=== PATIENT | female | born 1950 | race African-American/Black ===

== ENCOUNTER 2018-07-31 20:45 | Inpatient (IN) ==
[2018-07-31] MEDS ORDERED: SODIUM CHLORIDE 0.9% 1,000 ML IV STA (21:13)
[2018-07-31] MEDS ORDERED: ALBUTEROL/IPRATROPIUM 3 ML NEB RESP TX STA (21:13)
[2018-07-31 21:36] LABS: Basophils % 0.6 % (0.0-0.8); Hemoglobin 12.3 GM/DL (12.0-16.0); Immature Granulocytes % 0.6 %; Immature Granulocytes Absolute 0.03 #; Lymphocytes # 1.3 10*3/uL (1.4-4.0); Lymphocytes % 26.9 % (21.3-54.2); Mean Corpuscular HGB Conc 34.2 GM/DL (32-36); Mean Corpuscular Hemoglobin 27 PG (27-34); Mean Corpuscular Volume 79.8 FL (87-102); Monocytes # 0.6 10*3/uL (0.11-0.8); Monocytes % 11.9 % (1.7-12.7); Platelet Count 242 T/CUMM (130-400); Red Blood Count 4.51 MC/CUMM (3.8-5.5); Red Cell Distribution Width 15.1 % (9.3-17.3)
[2018-07-31 21:49] LABS: INR 1.2; PT Patient Result 12.8 SECS
[2018-07-31 21:53] LABS: Allen Test Positive
[2018-07-31 21:55] LABS: ABG Base Excess 2.5 MMOL/L (-2.5-2.5); ABG HCO3 26.6 MMOL/L (20-26); ABG Oxygen Saturation 97.8 % (95-100); ABG PCO2 43.3 MM HG (35-48); ABG PH 7.411 (7.35-7.45); ABG PO2 98.3 MM HG (80-95); ABG TCO2 24.5 MMOL/L (23-27)
[2018-07-31 22:17] LABS: Albumin 3.4 G/DL (3.4-5.0); Bilirubin,Total 0.6 MG/DL (0.2-1.0); Calcium 8.9 MG/DL (8.5-10.1); Osmolality,Calculated 271.1 MOS/KG (273-304); Potassium 3.7 MMOL/L (3.5-5.1)
[2018-07-31] MEDS ORDERED: LEVOFLOXACIN INJ 500 MG in PREMIX 1 EACH IV STA (22:35)
[2018-08-01] MEDS ORDERED: MORPHINE 4 MG/1 ML VIAL IV PRN (01:28)
[2018-08-01] MEDS ORDERED: NICOTINE 21 MG/24 HR PATCH TRANSDERM PRN (01:28)
[2018-08-01] MEDS ORDERED: BISACODYL 5 MG TABLET PO PRN (01:28)
[2018-08-01] MEDS ORDERED: ZALEPLON 5 MG CAPSULE PO PRN (01:28)
[2018-08-01] MEDS ORDERED: ONDANSETRON 4 MG/2 ML VIAL IV PRN (01:28)
[2018-08-01] MEDS ORDERED: guaiFENesin/DM ER 600-30 MG TABLET PO PRN (01:28)
[2018-08-01] MEDS ORDERED: ALBUTEROL 2.5 MG/3 ML NEB RESP TX PRN (01:28)
[2018-08-01] MEDS ORDERED: diphenhydrAMINE CAP 25 MG CAPSULE PO PRN (01:28)
[2018-08-01] MEDS: ALBUTEROL/IPRATROPIUM 3 ML NEB RESP TX SCH ×6 (03:01→23:28)
[2018-08-01] MEDS: SODIUM CHLORIDE 0.9% 1,000 ML IV SCH ×2 (04:29→18:11)
[2018-08-01] MEDS: cefTRIAXone 1,000 MG in SYRINGE 1 EACH IV SCH (04:34)
[2018-08-01] MEDS: AZITHROMYCIN INJ 500 MG in SODIUM CHLORIDE 0.9% 250 ML IV SCH (04:42)
[2018-08-01] MEDS: PANTOPRAZOLE 40 MG TABLET PO SCH (08:37)
[2018-08-01] MEDS: ENOXAPARIN 40 MG/0.4 ML SYRINGE SUBCUT SCH (13:17)
[2018-08-01] MEDS ORDERED: INSULIN GLARGINE 100 UNIT/ML SUBCUT PRN (20:34)
[2018-08-01] MEDS ORDERED: hydrALAZINE 25 MG TABLET PO PRN (20:34)
[2018-08-01] MEDS ORDERED: GLUCAGON 1 MG VIAL IM PRN (20:37)
[2018-08-01] MEDS ORDERED: DEXTROSE 50% 25 GM/50 ML VIAL IV PRN (20:37)
[2018-08-01] MEDS: GABAPENTIN 400 MG CAPSULE PO SCH (21:59)
[2018-08-01] MEDS: METOPROLOL TARTRATE 100 MG TABLET PO SCH (21:59)
[2018-08-01] MEDS: INSULIN LISPRO 100 UNIT/ML SUBCUT SCH (21:59)
[2018-08-02] MEDS: ALBUTEROL/IPRATROPIUM 3 ML NEB RESP TX SCH ×5 (03:40→20:01)
[2018-08-02 04:40] LABS: Basophils % 0.5 % (0.0-0.8); Eosinophils % 0.7 % (0.00-10.9); Hematocrit 31.9 VOL% (35.7-47.0); Hemoglobin 10.6 GM/DL (12.0-16.0); Immature Granulocytes % 0.2 %; Immature Granulocytes Absolute 0.01 #; Lymphocytes # 1.8 10*3/uL (1.4-4.0); Lymphocytes % 44.8 % (21.3-54.2); Mean Corpuscular HGB Conc 33.2 GM/DL (32-36); Mean Corpuscular Hemoglobin 27 PG (27-34); Mean Corpuscular Volume 79.9 FL (87-102); Mean Platelet Volume 9.3 FL (9.6-12.0); Monocytes # 0.5 10*3/uL (0.11-0.8); Monocytes % 12.9 % (1.7-12.7); Neutrophils # 1.7 10*3/uL (1.4-7.4); Neutrophils % 40.9 % (38.7-73.9); Platelet Count 198 T/CUMM (130-400); Red Blood Count 3.99 MC/CUMM (3.8-5.5); Red Cell Distribution Width 14.9 % (9.3-17.3)
[2018-08-02 05:03] LABS: Osmolality,Calculated 270.8 MOS/KG (273-304); Potassium 3.5 MMOL/L (3.5-5.1)
[2018-08-02 05:09] LABS: Platelet Estimate Adequate; Polychromasia Few
[2018-08-02] MEDS: SODIUM CHLORIDE 0.9% 1,000 ML IV SCH (06:14)
[2018-08-02] MEDS: cefTRIAXone 1,000 MG in SYRINGE 1 EACH IV SCH (06:16)
[2018-08-02] MEDS: LEVOTHYROXINE 88 MCG TABLET PO SCH (06:16)
[2018-08-02] MEDS: AZITHROMYCIN INJ 500 MG in SODIUM CHLORIDE 0.9% 250 ML IV SCH (06:21)
[2018-08-02] MEDS: INSULIN LISPRO 100 UNIT/ML SUBCUT SCH ×4 (08:03→21:19)
[2018-08-02] MEDS: ASPIRIN CHEW 81 MG TABLET PO SCH (08:34)
[2018-08-02] MEDS: MAGNESIUM CHLORIDE 64 MG TABLET PO SCH (08:34)
[2018-08-02] MEDS: PANTOPRAZOLE 40 MG TABLET PO SCH (08:34)
[2018-08-02] MEDS: METOPROLOL TARTRATE 100 MG TABLET PO SCH ×2 (08:34→21:36)
[2018-08-02] MEDS: ENOXAPARIN 40 MG/0.4 ML SYRINGE SUBCUT SCH (08:34)
[2018-08-02] MEDS: GABAPENTIN 400 MG CAPSULE PO SCH ×4 (08:34→21:20)
[2018-08-02] MEDS ORDERED: LEVOFLOXACIN INJ 750 MG in PREMIX 1 EACH IV SCH (11:00)
[2018-08-02] MEDS ORDERED: PIPERACILLIN/TAZOBACTAM 3,375 MG in SODIUM CHLORIDE 0.9% 100 ML IV SCH (13:00)
[2018-08-02] MEDS: ACETAMINOPHEN 325 MG TABLET PO PRN (16:14)
[2018-08-02] MEDS ORDERED: VANCOMYCIN INJ 750 MG in SODIUM CHLORIDE 0.9% 250 ML IV SCH (17:00)
[2018-08-03] MEDS: ALBUTEROL/IPRATROPIUM 3 ML NEB RESP TX SCH ×7 (00:33→22:30)
[2018-08-03] MEDS: ACETAMINOPHEN 325 MG TABLET PO PRN ×2 (01:28→21:56)
[2018-08-03] MEDS: SODIUM CHLORIDE 0.9% 1,000 ML IV SCH (01:31)
[2018-08-03 04:30] LABS: Basophils % 0.3 % (0.0-0.8); Eosinophils % 0.3 % (0.00-10.9); Hematocrit 34.1 VOL% (35.7-47.0); Hemoglobin 11.3 GM/DL (12.0-16.0); Immature Granulocytes % 0.3 %; Immature Granulocytes Absolute 0.01 #; Lymphocytes # 2.1 10*3/uL (1.4-4.0); Lymphocytes % 51.5 % (21.3-54.2); Mean Corpuscular HGB Conc 33.1 GM/DL (32-36); Mean Corpuscular Hemoglobin 27 PG (27-34); Mean Platelet Volume 9.3 FL (9.6-12.0); Monocytes # 0.4 10*3/uL (0.11-0.8); Monocytes % 10.5 % (1.7-12.7); Neutrophils # 1.5 10*3/uL (1.4-7.4); Neutrophils % 37.1 % (38.7-73.9); Platelet Count 193 T/CUMM (130-400); Red Blood Count 4.21 MC/CUMM (3.8-5.5); Red Cell Distribution Width 15.1 % (9.3-17.3)
[2018-08-03 04:53] LABS: Calcium 8.3 MG/DL (8.5-10.1); Osmolality,Calculated 271.7 MOS/KG (273-304); Potassium 3.4 MMOL/L (3.5-5.1)
[2018-08-03] MEDS: LEVOTHYROXINE 88 MCG TABLET PO SCH (06:02)
[2018-08-03] MEDS: cefTRIAXone 1,000 MG in SYRINGE 1 EACH IV SCH (06:02)
[2018-08-03 06:11] LABS: Lymphocytes 56 % (20-55); Metamyelocytes 1 %; Segmented Neutrophils 38 % (50-85); Total Cells Counted 100
[2018-08-03] MEDS: AZITHROMYCIN INJ 500 MG in SODIUM CHLORIDE 0.9% 250 ML IV SCH (06:11)
[2018-08-03 06:12] LABS: Platelet Estimate Normal; Target Cells 1+
[2018-08-03 06:13] LABS: Hypochromasia 1+
[2018-08-03] MEDS: INSULIN LISPRO 100 UNIT/ML SUBCUT SCH ×4 (08:15→21:56)
[2018-08-03] MEDS: METOPROLOL TARTRATE 100 MG TABLET PO SCH ×2 (08:44→21:56)
[2018-08-03] MEDS: PANTOPRAZOLE 40 MG TABLET PO SCH (08:44)
[2018-08-03] MEDS: ASPIRIN CHEW 81 MG TABLET PO SCH (08:44)
[2018-08-03] MEDS: MAGNESIUM CHLORIDE 64 MG TABLET PO SCH (08:44)
[2018-08-03] MEDS: ENOXAPARIN 40 MG/0.4 ML SYRINGE SUBCUT SCH (08:44)
[2018-08-03] MEDS: GABAPENTIN 400 MG CAPSULE PO SCH ×4 (08:48→21:56)
[2018-08-03] MEDS: SODIUM CHLOR 0.9% KCL 20 MEQ 20 MEQ/1,000 ML BAG IV SCH (13:26)
[2018-08-04] MEDS: SODIUM CHLOR 0.9% KCL 20 MEQ 20 MEQ/1,000 ML BAG IV SCH ×2 (02:18→13:55)
[2018-08-04] MEDS: ALBUTEROL/IPRATROPIUM 3 ML NEB RESP TX SCH ×3 (02:26→11:18)
[2018-08-04] MEDS: cefTRIAXone 1,000 MG in SYRINGE 1 EACH IV SCH (05:36)
[2018-08-04] MEDS: LEVOTHYROXINE 88 MCG TABLET PO SCH (05:36)
[2018-08-04] MEDS: AZITHROMYCIN INJ 500 MG in SODIUM CHLORIDE 0.9% 250 ML IV SCH (05:39)
[2018-08-04 06:49] LABS: Basophils % 0.3 % (0.0-0.8); Eosinophils % 0.3 % (0.00-10.9); Hematocrit 31.3 VOL% (35.7-47.0); Hemoglobin 10.1 GM/DL (12.0-16.0); Immature Granulocytes % 0.3 %; Immature Granulocytes Absolute 0.01 #; Lymphocytes # 2.2 10*3/uL (1.4-4.0); Lymphocytes % 64.5 % (21.3-54.2); Mean Corpuscular HGB Conc 32.3 GM/DL (32-36); Mean Corpuscular Hemoglobin 26 PG (27-34); Mean Corpuscular Volume 81.1 FL (87-102); Mean Platelet Volume 9.1 FL (9.6-12.0); Monocytes # 0.4 10*3/uL (0.11-0.8); Monocytes % 11.2 % (1.7-12.7); Neutrophils # 0.8 10*3/uL (1.4-7.4); Neutrophils % 23.4 % (38.7-73.9); Platelet Count 153 T/CUMM (130-400); Red Blood Count 3.86 MC/CUMM (3.8-5.5); Red Cell Distribution Width 15.7 % (9.3-17.3); White Blood Count 3.4 T/CUMM (4-12)
[2018-08-04 07:06] LABS: Calcium 8.1 MG/DL (8.5-10.1); Osmolality,Calculated 274.5 MOS/KG (273-304); Potassium 3.9 MMOL/L (3.5-5.1)
[2018-08-04 07:10] LABS: Eosinophils 1 % (0-10); Lymphocytes 58 % (20-55); Segmented Neutrophils 26 % (50-85); Total Cells Counted 100
[2018-08-04 07:11] LABS: Atypical Lymphocytes Few; Hypochromasia 1+; Platelet Estimate Adequate; Target Cells Few
[2018-08-04] MEDS: INSULIN LISPRO 100 UNIT/ML SUBCUT SCH ×2 (08:37→12:21)
[2018-08-04] MEDS: METOPROLOL TARTRATE 100 MG TABLET PO SCH (09:04)
[2018-08-04] MEDS: ENOXAPARIN 40 MG/0.4 ML SYRINGE SUBCUT SCH (09:05)
[2018-08-04] MEDS: GABAPENTIN 400 MG CAPSULE PO SCH ×2 (09:05→14:15)
[2018-08-04] MEDS: ASPIRIN CHEW 81 MG TABLET PO SCH (09:05)
[2018-08-04] MEDS: MAGNESIUM CHLORIDE 64 MG TABLET PO SCH (09:05)
[2018-08-04] MEDS: PANTOPRAZOLE 40 MG TABLET PO SCH (09:05)
[2018-08-04] MEDS ORDERED: DORNASE ALFA 2.5 MG/2.5 ML VIAL RESP TX SCH (11:00)
[2018-08-04] MEDS ORDERED: MONTELUKAST 10 MG TABLET PO SCH (11:00)
[2018-08-04 11:34] LABS: % Iron Saturation 7.8 % (18-50)
[2018-08-04 11:40] LABS: Free T4 (Free Thyroxine) 1.14 NG/DL (0.76-1.46); Thyroid Stimulating Hormone 4.84 uIU/ml (0.358-3.74)
[2018-08-04 11:55] LABS: Folate 8.9 NG/ML (5.4-24.0)
[2018-08-04 12:54] VITALS: BP 130/73
== END 2018-08-04 14:55 | disposition home health service (06) | DRG 178 ==
LOC: N.ED 20:45 → SUPCPDRO 08-01 01:28 → N.EDINP 08-01 01:28 → N.5E 08-01 03:33
PROVIDERS: ADMIT Internal Medicine; ATTEND Internal Medicine

== ENCOUNTER 2018-09-16 11:05 | Inpatient (IN) ==
[2018-09-16] MEDS ORDERED: LACTULOSE 20 GM/30 ML UDCUP PO PRN (12:22)
[2018-09-16] MEDS ORDERED: DEXTROSE 50% 25 GM/50 ML SYRINGE IV PRN (12:22)
[2018-09-16] MEDS ORDERED: GLUCAGON 1 MG VIAL IM PRN (12:22)
[2018-09-16] MEDS ORDERED: ACETAMINOPHEN 325 MG TABLET PO PRN (12:22)
[2018-09-16] MEDS ORDERED: ONDANSETRON 4 MG/2 ML VIAL IV PRN (12:22)
[2018-09-16] MEDS ORDERED: NICOTINE 21 MG/24 HR PATCH TRANSDERM PRN (12:33)
[2018-09-16] MEDS ORDERED: ALBUTEROL 2.5 MG/3 ML NEB RESP TX PRN (13:00)
[2018-09-16 13:04] LABS: Basophils # 0.1 10*3/uL (0.0-0.2); Basophils % 0.6 % (0.0-0.8); Eosinophils % 0.1 % (0.00-10.9); Hematocrit 40.3 VOL% (35.7-47.0); Hemoglobin 13.4 GM/DL (12.0-16.0); Immature Granulocytes % 0.3 %; Immature Granulocytes Absolute 0.03 #; Lymphocytes # 3.2 10*3/uL (1.4-4.0); Lymphocytes % 30.9 % (21.3-54.2); Mean Corpuscular HGB Conc 33.3 GM/DL (32-36); Mean Corpuscular Hemoglobin 27 PG (27-34); Mean Corpuscular Volume 80.1 FL (87-102); Mean Platelet Volume 9.4 FL (9.6-12.0); Monocytes # 0.8 10*3/uL (0.11-0.8); Monocytes % 7.5 % (1.7-12.7); Neutrophils # 6.2 10*3/uL (1.4-7.4); Neutrophils % 60.6 % (38.7-73.9); Platelet Count 324 T/CUMM (130-400); Red Blood Count 5.03 MC/CUMM (3.8-5.5); Red Cell Distribution Width 16.8 % (9.3-17.3); White Blood Count 10.3 T/CUMM (4-12)
[2018-09-16 13:28] LABS: Calcium 9.4 MG/DL (8.5-10.1); Osmolality,Calculated 274.7 MOS/KG (273-304); Potassium 3.5 MMOL/L (3.5-5.1)
[2018-09-16] MEDS: ALBUTEROL/IPRATROPIUM 3 ML NEB RESP TX SCH ×2 (13:35→19:03)
[2018-09-16 13:39] LABS: Risk Ratio 2.11; Thyroid Stimulating Hormone 7.81 uIU/ml (0.358-3.74); VLDL CHOLESTEROL 11.6 MG/DL
[2018-09-16] MEDS ORDERED: cefTRIAXone 2,000 MG in SODIUM CHLORIDE 0.9% 100 ML IV SCH (14:30)
[2018-09-16] MEDS ORDERED: AZITHROMYCIN INJ 500 MG in SODIUM CHLORIDE 0.9% 250 ML IV SCH (14:30)
[2018-09-16] MEDS ORDERED: hydrALAZINE 25 MG TABLET PO PRN (14:35)
[2018-09-16 15:11] LABS: Free T4 (Free Thyroxine) 1.11 NG/DL (0.76-1.46)
[2018-09-16] MEDS: LEVOFLOXACIN INJ 750 MG in PREMIX 1 EACH IV SCH (15:29)
[2018-09-16] MEDS: BENZONATATE 100 MG CAPSULE PO SCH ×2 (15:29→20:28)
[2018-09-16] MEDS: PIPERACILLIN/TAZOBACTAM 3,375 MG in SODIUM CHLORIDE 0.9% 100 ML IV SCH (17:35)
[2018-09-16] MEDS: GABAPENTIN 400 MG CAPSULE PO SCH ×2 (17:36→20:28)
[2018-09-16] MEDS: INSULIN LISPRO 100 UNIT/ML SUBCUT SCH ×2 (17:36→22:27)
[2018-09-16] MEDS: NICOTINE 21 MG/24 HR PATCH TRANSDERM SCH (17:36)
[2018-09-16] MEDS: buPROPion SR 100 MG TABLET PO SCH (18:12)
[2018-09-16] MEDS: cefTAZidime 1,000 MG in SYRINGE 1 EACH IV SCH (18:12)
[2018-09-16] MEDS: METOPROLOL TARTRATE 100 MG TABLET PO SCH (20:28)
[2018-09-16] MEDS: FERROUS SULFATE 325 MG TABLET PO SCH (20:28)
[2018-09-16] MEDS: ENOXAPARIN 40 MG/0.4 ML SYRINGE SUBCUT SCH (20:28)
[2018-09-17 00:23] LABS: Apearance,Urine CLEAR (Clear); Bacteria,Urine Occasional /HPF (Few); Bilirubin,Urine Negative (Negative); Blood, Urine Moderate mg/dL (Negative); Glucose,Urine (UA) Negative (Negative); Ketones,Urine Negative (Negative); Nitrite,Urine Negative (Negative); Protein,Urine Negative; RBC,Urine 11 /HPF (0-4); Squamous Epithelial Cell,Urine Occasional /HPF (0-10); Urine Color Yellow (Yellow); Urine Specific Gravity 1.009 (1.001-1.035); Urine Urobilinogen < 2.0 EU/DL (0.2-1.0); WBC,Urine 2 /HPF (0-6)
[2018-09-17] MEDS: ALBUTEROL/IPRATROPIUM 3 ML NEB RESP TX SCH ×4 (00:33→19:00)
[2018-09-17] MEDS: PIPERACILLIN/TAZOBACTAM 3,375 MG in SODIUM CHLORIDE 0.9% 100 ML IV SCH ×3 (01:20→18:17)
[2018-09-17] MEDS: cefTAZidime 1,000 MG in SYRINGE 1 EACH IV SCH ×3 (01:23→18:13)
[2018-09-17 05:29] LABS: Basophils # 0.1 10*3/uL (0.0-0.2); Basophils % 0.5 % (0.0-0.8); Eosinophils # 0.1 10*3/uL (0.0-0.87); Eosinophils % 0.6 % (0.00-10.9); Hematocrit 33.6 VOL% (35.7-47.0); Immature Granulocytes % 0.3 %; Immature Granulocytes Absolute 0.03 #; Lymphocytes # 3.3 10*3/uL (1.4-4.0); Lymphocytes % 31.9 % (21.3-54.2); Mean Corpuscular HGB Conc 32.7 GM/DL (32-36); Mean Corpuscular Hemoglobin 26 PG (27-34); Mean Corpuscular Volume 80.4 FL (87-102); Mean Platelet Volume 9.6 FL (9.6-12.0); Monocytes % 9.6 % (1.7-12.7); Neutrophils # 5.9 10*3/uL (1.4-7.4); Neutrophils % 57.1 % (38.7-73.9); Platelet Count 252 T/CUMM (130-400); Red Blood Count 4.18 MC/CUMM (3.8-5.5); Red Cell Distribution Width 16.4 % (9.3-17.3); White Blood Count 10.3 T/CUMM (4-12)
[2018-09-17 05:36] LABS: Calcium 8.7 MG/DL (8.5-10.1); Osmolality,Calculated 272.8 MOS/KG (273-304); Potassium 3.8 MMOL/L (3.5-5.1)
[2018-09-17] MEDS: PANTOPRAZOLE 40 MG TABLET PO SCH (06:25)
[2018-09-17] MEDS: LEVOTHYROXINE 88 MCG TABLET PO SCH (06:25)
[2018-09-17] MEDS: INSULIN LISPRO 100 UNIT/ML SUBCUT SCH ×4 (08:34→21:01)
[2018-09-17] MEDS: BEVESPI INH SCH (10:23)
[2018-09-17] MEDS: METOPROLOL TARTRATE 100 MG TABLET PO SCH ×2 (10:24→20:53)
[2018-09-17] MEDS: MAGNESIUM CHLORIDE 64 MG TABLET PO SCH (10:24)
[2018-09-17] MEDS: GABAPENTIN 400 MG CAPSULE PO SCH ×4 (10:24→20:53)
[2018-09-17] MEDS: FAMOTIDINE 20 MG TABLET PO SCH (10:24)
[2018-09-17] MEDS: ASPIRIN CHEW 81 MG TABLET PO SCH (10:24)
[2018-09-17] MEDS: FERROUS SULFATE 325 MG TABLET PO SCH ×2 (10:24→20:53)
[2018-09-17] MEDS: BENZONATATE 100 MG CAPSULE PO SCH ×3 (10:24→20:53)
[2018-09-17] MEDS: NICOTINE 21 MG/24 HR PATCH TRANSDERM SCH (10:25)
[2018-09-17] MEDS: MONTELUKAST 10 MG TABLET PO SCH (10:25)
[2018-09-17] MEDS: buPROPion SR 100 MG TABLET PO SCH ×2 (10:25→20:53)
[2018-09-17] MEDS: methylPREDNISolone SOD SUC 125 MG/2 ML VIAL IV SCH ×2 (10:29→20:53)
[2018-09-17] MEDS: LEVOFLOXACIN INJ 750 MG in PREMIX 1 EACH IV SCH (14:39)
[2018-09-17] MEDS: ENOXAPARIN 40 MG/0.4 ML SYRINGE SUBCUT SCH (20:53)
[2018-09-18] MEDS: ALBUTEROL/IPRATROPIUM 3 ML NEB RESP TX SCH ×4 (01:09→19:07)
[2018-09-18] MEDS: cefTAZidime 1,000 MG in SYRINGE 1 EACH IV SCH ×3 (01:36→18:01)
[2018-09-18] MEDS: PIPERACILLIN/TAZOBACTAM 3,375 MG in SODIUM CHLORIDE 0.9% 100 ML IV SCH ×3 (01:36→17:25)
[2018-09-18 05:11] LABS: Basophils % 0.1 % (0.0-0.8); Hematocrit 33.6 VOL% (35.7-47.0); Hemoglobin 11.1 GM/DL (12.0-16.0); Immature Granulocytes % 0.5 %; Immature Granulocytes Absolute 0.05 #; Lymphocytes # 0.9 10*3/uL (1.4-4.0); Lymphocytes % 8.7 % (21.3-54.2); Mean Corpuscular Hemoglobin 26 PG (27-34); Mean Corpuscular Volume 79.2 FL (87-102); Mean Platelet Volume 9.2 FL (9.6-12.0); Monocytes # 0.1 10*3/uL (0.11-0.8); Monocytes % 0.9 % (1.7-12.7); Neutrophils # 9.2 10*3/uL (1.4-7.4); Neutrophils % 89.8 % (38.7-73.9); Platelet Count 252 T/CUMM (130-400); Red Blood Count 4.24 MC/CUMM (3.8-5.5); White Blood Count 10.3 T/CUMM (4-12)
[2018-09-18 05:29] LABS: Osmolality,Calculated 274.1 MOS/KG (273-304); Potassium 3.9 MMOL/L (3.5-5.1)
[2018-09-18] MEDS: LEVOTHYROXINE 88 MCG TABLET PO SCH (06:03)
[2018-09-18] MEDS: PANTOPRAZOLE 40 MG TABLET PO SCH (06:03)
[2018-09-18] MEDS: MAGNESIUM CHLORIDE 64 MG TABLET PO SCH (09:40)
[2018-09-18] MEDS: MONTELUKAST 10 MG TABLET PO SCH (09:40)
[2018-09-18] MEDS: FERROUS SULFATE 325 MG TABLET PO SCH ×2 (09:41→20:25)
[2018-09-18] MEDS: METOPROLOL TARTRATE 100 MG TABLET PO SCH ×2 (09:41→20:25)
[2018-09-18] MEDS: FAMOTIDINE 20 MG TABLET PO SCH (09:41)
[2018-09-18] MEDS: GABAPENTIN 400 MG CAPSULE PO SCH ×4 (09:41→20:25)
[2018-09-18] MEDS: ASPIRIN CHEW 81 MG TABLET PO SCH (09:41)
[2018-09-18] MEDS: BENZONATATE 100 MG CAPSULE PO SCH ×3 (09:41→20:25)
[2018-09-18] MEDS: INSULIN LISPRO 100 UNIT/ML SUBCUT SCH ×4 (09:42→21:14)
[2018-09-18] MEDS: methylPREDNISolone SOD SUC 125 MG/2 ML VIAL IV SCH (09:43)
[2018-09-18] MEDS: NICOTINE 21 MG/24 HR PATCH TRANSDERM SCH (09:46)
[2018-09-18] MEDS: buPROPion SR 100 MG TABLET PO SCH (09:46)
[2018-09-18] MEDS: BEVESPI INH SCH (09:57)
[2018-09-18] MEDS ORDERED: MELATONIN 3 MG TABLET PO PRN (11:44)
[2018-09-18] MEDS: LEVOFLOXACIN INJ 750 MG in PREMIX 1 EACH IV SCH (15:58)
[2018-09-18] MEDS ORDERED: HALOPERIDOL 5 MG/ML AMP IM PRN (17:14)
[2018-09-18] MEDS: ENOXAPARIN 40 MG/0.4 ML SYRINGE SUBCUT SCH (20:22)
[2018-09-18] MEDS: buPROPion SR 150 MG TABLET PO SCH (20:25)
[2018-09-18] MEDS: DOCUSATE SODIUM 100 MG CAPSULE PO PRN (20:25)
[2018-09-19] MEDS: PIPERACILLIN/TAZOBACTAM 3,375 MG in SODIUM CHLORIDE 0.9% 100 ML IV SCH ×2 (00:08→09:17)
[2018-09-19] MEDS: ALBUTEROL/IPRATROPIUM 3 ML NEB RESP TX SCH ×3 (00:39→12:02)
[2018-09-19] MEDS: cefTAZidime 1,000 MG in SYRINGE 1 EACH IV SCH ×2 (04:20→09:15)
[2018-09-19] MEDS: LEVOTHYROXINE 88 MCG TABLET PO SCH (05:32)
[2018-09-19] MEDS: PANTOPRAZOLE 40 MG TABLET PO SCH (05:32)
[2018-09-19] MEDS ORDERED: methylPREDNISolone SOD SUC 125 MG/2 ML VIAL IV SCH (09:00)
[2018-09-19] MEDS ORDERED: predniSONE 20 MG TABLET PO SCH (09:00)
[2018-09-19] MEDS: BENZONATATE 100 MG CAPSULE PO SCH ×2 (09:21→14:32)
[2018-09-19] MEDS: MAGNESIUM CHLORIDE 64 MG TABLET PO SCH (09:22)
[2018-09-19] MEDS: FERROUS SULFATE 325 MG TABLET PO SCH (09:22)
[2018-09-19] MEDS: ASPIRIN CHEW 81 MG TABLET PO SCH (09:22)
[2018-09-19] MEDS: DOCUSATE SODIUM 100 MG CAPSULE PO PRN (09:22)
[2018-09-19] MEDS: GABAPENTIN 400 MG CAPSULE PO SCH ×2 (09:22→13:21)
[2018-09-19] MEDS: METOPROLOL TARTRATE 100 MG TABLET PO SCH (09:22)
[2018-09-19] MEDS: MONTELUKAST 10 MG TABLET PO SCH (09:22)
[2018-09-19] MEDS: FAMOTIDINE 20 MG TABLET PO SCH (09:23)
[2018-09-19] MEDS: NICOTINE 21 MG/24 HR PATCH TRANSDERM SCH (09:31)
[2018-09-19] MEDS: buPROPion SR 150 MG TABLET PO SCH (09:32)
[2018-09-19 11:41] VITALS: BP 135/80
== END 2018-09-19 15:25 | disposition home or self-care (01) | DRG 178 ==
LOC: N.2E → SUATTDRO 11:14 → N.2E 09-18 18:18
PROVIDERS: ADMIT Internal Medicine; ATTEND Internal Medicine Nephrology